=== PATIENT | female | born 1955 | race Caucasian/White ===

== ENCOUNTER 2019-11-28 05:37 | Day surgery (SDC) | payer BC ==
[2019-11-20 12:35] LABS: BASOPHILS # (AUTO) 0.1 X10'3 (0-0.2); BASOPHILS % (AUTO) 0.7 % (0-1); EOSINOPHILS # (AUTO) 0.2 X10'3 (0-0.9); EOSINOPHILS % (AUTO) 1.5 % (0-6); LYMPHOCYTES # (AUTO) 3.4 X10'3 (1.1-4.8); LYMPHOCYTES % (AUTO) 33.3 % (21-51); MEAN CORPUSCULAR HEMOGLOBIN 27.4 PG (27.0-31.0); MEAN CORPUSCULAR HGB CONC 32.7 g/dL (33.0-36.5); MEAN CORPUSCULAR VOLUME 83.7 FL (78-98); MEAN PLATELET VOLUME 8.1 FL (7.4-10.4); MONOCYTES # (AUTO) 1.1 X10'3 (0-0.9); MONOCYTES % (AUTO) 10.4 % (2-12); NEUTROPHILS # (AUTO) 5.6 X10'3 (1.8-7.7); NEUTROPHILS % (AUTO) 54.1 % (42-75); PRE OP HEMATOCRIT 43.7 % (35.0-45.0); PRE OP HEMOGLOBIN 14.3 g/dL (12.0-16.0); PRE OP PLATELET COUNT 348 X10'3 (140-440); RED BLOOD COUNT 5.22 X10'6 (4.20-5.60)
[2019-11-20 12:55] LABS: ALBUMIN 4.5 G/DL (3.4-5.0); ALBUMIN/GLOBULIN RATIO 1.3 (1.1-1.5); ALKALINE PHOSPHATASE 48 IU/L (46-116); BLOOD UREA NITROGEN 31 MG/DL (7-18); CALCIUM 9.8 MG/DL (8.5-10.1); CHLORIDE 104 MMOL/L (99-107); CREATININE 0.86 MG/DL (0.40-0.90); HEMOGLOBIN A1C 6.4 % (4.5-6.2); PRE OP ALT 31 U/L (30-65); PRE OP ANION GAP 6 (8-16); PRE OP AST 24 U/L (10-37); PRE OP BILIRUB, TOTAL 0.3 MG/DL (0.0-1.0); PRE OP GLUCOSE 82 MG/DL (70-104); PRE OP SODIUM 142 MMOL/L (135-145); TOTAL CARBON DIOXIDE 31.8 MMOL/L (24-32); TOTAL PROTEIN 7.9 G/DL (6.4-8.2); eGFR 67 ML/MIN
[2019-11-20 13:06] LABS: PRE OP POTASSIUM 2.9 MMOL/L (3.4-5.1)
[2019-11-28] VITALS (7 sets, daily range): BP systolic 94–118; BP diastolic 61–78
[~2019-11-28] VITALS: Ht 157.5 cm; Wt 72.8 kg
[~2019-11-28 05:37] MED LIST: CELE-28 PO; DAPA10TA PO; FENO145T38 PO; GABA300C PO; INSU100V11 SQ; INSU100V12 SQ; LIFI1DRO EACHEYE; LOSA1TAB39 PO; METF-438 PO; MORPHINE ER PO; SEMA7TAB PO; cefazolin/dext.iso 2gm/50ml 50 ML IV ONE; famotidine 20mg tablet PO ONE; ringers solution, lacted 1,000 ML IV SCH
[2019-11-28] MEDS ORDERED: LIDOcaine 1% (10mg/ml) 2ml vial ONE (05:56)
[2019-11-28 06:30] LABS: ISTAT ANION GAP -9 (8-12); ISTAT BUN 52 mg/dL (6-19); ISTAT CL 107 mmol/L (99-107); ISTAT CREATININE 0.7 mg/dL (0.6-1.1); ISTAT GLUCOSE 59 mg/dL (70-104); ISTAT HGB 13.3 g/dl (12.0-16.0); ISTAT Hct 39 %PCV (35-48); ISTAT IONIZED CALCIUM 0.72 mmol/L (1.03-1.32); ISTAT K > 8.5 mmol/L (3.5-5.1); ISTAT NA 127 mmol/L (135-145); ISTAT TOTAL CO2 29 mmol/L (24-32); ISTAT eGFR 85 ML/MIN; POC BUN/CREATININE RATIO 74.3 (6.6-38.0)
[2019-11-28 06:46] LABS: ISTAT CREATININE 0.9 mg/dL (0.6-1.1); ISTAT HGB 12.6 g/dl (12.0-16.0); ISTAT IONIZED CALCIUM 1.31 mmol/L (1.03-1.32); ISTAT K 3.1 mmol/L (3.5-5.1)
[2019-11-28] MEDS ORDERED: BUPIVAcaine/PF 2.5 mg/ml (0.25%) 30ml vial ONE (06:46)
[2019-11-28] MEDS ORDERED: LIDOcaine 0.5% (5mg/ml) 50ml vial ONE (07:45)
[2019-11-28] MEDS ORDERED: ringers solution, lacted 1,000 ML IV SCH (08:07)
[2019-11-28] MEDS ORDERED: ondansetron/PF 4mg/2ml inj IV PRN (08:10)
[2019-11-28] MEDS ORDERED: morphine 2 MG/ML inj. syringe IV PRN (08:10)
[2019-11-28] MEDS ORDERED: meperidine/PF 25mg/ml syringe IV PRN ×3 (08:10)
[2019-11-28] MEDS ORDERED: morphine 4 MG/ML inj SYRINge IV PRN (08:10)
[2019-11-28] MEDS ORDERED: proCHLORperazine 10 MG/2 ml inj IV PRN (08:10)
[2019-11-28] MEDS ORDERED: midazolam 2 mg/2 ml injection ONE (08:11)
[2019-11-28] MEDS ORDERED: fentaNYL/PF 50MCG/1 ML 2ML syringe ONE (08:11)
--- NOTE | 2019-11-28 08:34 | NUR ---
Received from OR via [facility] , accompanied by Anesthesiologist GRETA and report given by Anesthesiolgist. PATIENT WITH SPLINT AND BIAS TO RIGHT WRIST DRESSING THAT IS CDI. VSS. DENIES PAIN. PATIENT WITH 20G PIV IN LEFT UE RUNNING LR AT 100. DENIES PAIN. Addendum: 11/28/19 at 0850 by Kvng Reina RN, RN Amended: Links added.
--- NOTE | 2019-11-28 08:38 | NUR ---
Received from OR via [facility] , accompanied by Anesthesiologist GRETA and report given by Anesthesiolgist. PATIENT WITH DRESSING TO RIGHT UE THAT IS CDI. MOVES PINKY FINGER AND DENIES PAIN. 20G PIV IN LEFT UE RUNNING LR AT 100. Addendum: 11/28/19 at 0845 by Kvng Reina RN, RN Amended: Links added.
--- NOTE | 2019-11-28 08:55 | NUR ---
67 BLOOD GLUCOSE. WAS IN 50'S PRE OP. JUICE GIVEN PER MD HERNANDES REQUEST. Addendum: 11/28/19 at 0856 by Kvng Reina RN, RN Amended: Links added.
--- NOTE | 2019-11-28 09:14 | NUR ---
PATIENT AND FAMILY AND THEY HAVE VERBALIZED UNDERSTANDING, OPPORTUNITY TO ASK QUESTIONS GIVEN AND PATIENT COMFORTABLE WITH DC. IV TAKEN OUT WITHOUT COMPLICATION. PATIENT HAS MET ALL DC CRITERIA FOR DC HOME. I HAVE REVIEWED D/C INSTRUCTIONS WITH OUT VIA WHEELCHAIR WHERE PATIENT WAS TAKEN HOME WITH ALL BELONGINGS. FAMILY GAVE PATIENT TRANSPORT HOME. WRIST DRESSING IS CDI. SPOUSE DROVE PATIENT HOME. VSS. DENIES NEED FOR FURTHER MEDICATIONS. NO S/S OF HYPOGLYCEMIA. STATES HER LOW OCCURS IN THE LOW 50'S BG. Addendum: 11/28/19 at 0928 by Kvng Reina RN, RN Amended: Links added.
== END 2019-11-28 09:14 | disposition home or self-care (01) ==
LOC: PAS 05:37
PROVIDERS: ATTEND Orthopaedic Surgery Hand Surgery
DX: G56.01 Carpal tunnel syndrome, right upper limb (principal); M67.441 Ganglion, right hand; I10 Essential (primary) hypertension; E11.9 Type 2 diabetes mellitus without complications; M54.30 Sciatica, unspecified side; M17.11 Unilateral primary osteoarthritis, right knee; M47.9 Spondylosis, unspecified; G43.909 Migraine, unspecified, not intractable, without status migrainosus; E78.00 Pure hypercholesterolemia, unspecified; Z88.8 Allergy status to other drugs, medicaments and biological substances; Z88.1 Allergy status to other antibiotic agents; Z85.828 Personal history of other malignant neoplasm of skin; Z98.890 Other specified postprocedural states; Z79.899 Other long term (current) drug therapy; Z90.710 Acquired absence of both cervix and uterus; Z20.828 Contact with and (suspected) exposure to other viral communicable diseases; Z82.49 Family history of ischemic heart disease and other diseases of the circulatory system; Z80.42 Family history of malignant neoplasm of prostate
CPT/HCPCS: 26160; 29848; 36415; 80047; 80053; 82948; 83036; 85025; 87635; 93005; J2001; J2250; J3010; J3490; A4215; A7000; J7120

== ENCOUNTER 2019-12-26 05:49 | Day surgery (SDC) | payer BC ==
[~2019-12-26] VITALS: Ht 157.5 cm; Wt 72.6 kg
[~2019-12-26 05:49] MED LIST changes: -cefazolin/dext.iso 2gm/50ml 50 ML IV ONE; +famotidine 10mg tablet PO ONE; -famotidine 20mg tablet PO ONE
[2019-12-26 06:00] VITALS: BP 127/87
[2019-12-26] MEDS ORDERED: losartan 50mg tablet PO ONE (06:00)
[2019-12-26] MEDS ORDERED: ceFAZolin 2gm in dextrose, iso 50 ML IV ONE (06:00)
[2019-12-26] MEDS ORDERED: BUPIVAcaine/PF 2.5mg/ml (0.25%) 10ml vial ONE (06:39)
[2019-12-26 07:00] LABS: BASOPHILS # (AUTO) 0.1 X10'3 (0-0.2); EOSINOPHILS # (AUTO) 0.2 X10'3 (0-0.9); EOSINOPHILS % (AUTO) 2.3 % (0-6); LYMPHOCYTES # (AUTO) 3.1 X10'3 (1.1-4.8); LYMPHOCYTES % (AUTO) 39.9 % (21-51); MEAN CORPUSCULAR HEMOGLOBIN 26.8 PG (27.0-31.0); MEAN CORPUSCULAR HGB CONC 32.5 g/dL (33.0-36.5); MEAN CORPUSCULAR VOLUME 82.5 FL (78-98); MEAN PLATELET VOLUME 8.6 FL (7.4-10.4); MONOCYTES # (AUTO) 0.8 X10'3 (0-0.9); MONOCYTES % (AUTO) 10.2 % (2-12); NEUTROPHILS # (AUTO) 3.7 X10'3 (1.8-7.7); NEUTROPHILS % (AUTO) 46.6 % (42-75); PRE OP HEMATOCRIT 42.3 % (35.0-45.0); PRE OP HEMOGLOBIN 13.7 g/dL (12.0-16.0); PRE OP PLATELET COUNT 287 X10'3 (140-440); RED BLOOD COUNT 5.12 X10'6 (4.20-5.60); RED CELL DISTRIBUTION WIDTH 14.2 % (11.5-14.5)
[2019-12-26 07:11] LABS: ALBUMIN 4.4 G/DL (3.4-5.0); ALBUMIN/GLOBULIN RATIO 1.3 (1.1-1.5); ALKALINE PHOSPHATASE 52 IU/L (46-116); BLOOD UREA NITROGEN 28 MG/DL (7-18); BUN/CREATININE RATIO 35.4 (6.6-38.0); CALCIUM 10.6 MG/DL (8.5-10.1); CHLORIDE 109 MMOL/L (99-107); CREATININE 0.79 MG/DL (0.40-0.90); PRE OP ALT 38 U/L (30-65); PRE OP ANION GAP 6 (8-16); PRE OP AST 27 U/L (10-37); PRE OP BILIRUB, TOTAL 0.3 MG/DL (0.0-1.0); PRE OP GLUCOSE 80 MG/DL (70-104); PRE OP POTASSIUM 3.7 MMOL/L (3.4-5.1); PRE OP SODIUM 145 MMOL/L (135-145); TOTAL CARBON DIOXIDE 30.3 MMOL/L (24-32); TOTAL PROTEIN 7.8 G/DL (6.4-8.2); eGFR 74 ML/MIN
[2019-12-26] MEDS ORDERED: fentaNYL/PF 50MCG/1 ML 2ML syringe ONE (07:18)
[2019-12-26] MEDS ORDERED: MIDAZolam 5mg/5ml vial ONE (07:19)
[2019-12-26] MEDS ORDERED: morphine 2 MG/ML inj. syringe IV PRN (07:25)
[2019-12-26] MEDS ORDERED: ringers solution, lacted 1,000 ML IV SCH (07:25)
[2019-12-26] MEDS ORDERED: morphine 4 MG/ML inj SYRINge IV PRN (07:25)
[2019-12-26] MEDS ORDERED: meperidine/PF 25mg/ml syringe IV PRN ×3 (07:25)
[2019-12-26] MEDS ORDERED: proCHLORperazine 10 MG/2 ml inj IV PRN (07:25)
[2019-12-26] MEDS ORDERED: ondansetron/PF 4mg/2ml inj IV PRN (07:25)
[2019-12-26] MEDS ORDERED: LIDOcaine 1% 30ml preserv. free vial ONE (07:33)
[2019-12-26] MEDS ORDERED: 0.9 % SODIUM CHLORIDE 10 ML VIAL ONE (07:39)
[2019-12-26] MEDS ORDERED: ketorolac trometh. 30mg/ml inj. ONE (07:39)
[2019-12-26 08:20] VITALS: BP 132/83
--- NOTE | 2019-12-26 08:20 | NUR ---
Received from OR via BED, accompanied by Anesthesiologist DR ABARCA and report given by Anesthesiolgist. PATIENT A&OX4, DENIES PAIN, V/S WNL, NEUROVASCULAR CHECKS INTACT, 20G PIV RUE, SCD ON, DRESSING TO LEFT WRIST CDI ELEVATED WITH ICEBAG APPLIED.
[2019-12-26 08:30] VITALS: BP 122/75
[2019-12-26 08:40] VITALS: BP 128/77
[2019-12-26 08:50] VITALS: BP 124/74
--- NOTE | 2019-12-26 08:50 | NUR ---
PATIENT A&OX4, DENIES PAIN, V/S WNL, NEUROVASCULAR CHECKS INTACT, 20G PIV RUE D/C, SCD OFF, DRESSING TO LEFT WRIST CDI ELEVATED WITH ICEBAG APPLIED. I HAVE REVIEWED D/C INSTRUCTIONS WITH PATIENT AND FAMILY AND THEY HAVE VERBALIZED UNDERSTANDING. PATIENT D/C HOME WITH ALL BELONGINGS AND FAMILY GAVE TRANSPORT HOME.
== END 2019-12-26 08:50 | disposition home or self-care (01) ==
LOC: PAS 05:49
PROVIDERS: ATTEND Orthopaedic Surgery Hand Surgery
DX: G56.02 Carpal tunnel syndrome, left upper limb (principal); M17.11 Unilateral primary osteoarthritis, right knee; G89.29 Other chronic pain; E11.9 Type 2 diabetes mellitus without complications; I10 Essential (primary) hypertension; E78.00 Pure hypercholesterolemia, unspecified; G43.909 Migraine, unspecified, not intractable, without status migrainosus; M54.30 Sciatica, unspecified side; Z87.442 Personal history of urinary calculi; Z98.890 Other specified postprocedural states; Z79.899 Other long term (current) drug therapy; Z79.4 Long term (current) use of insulin; Z88.1 Allergy status to other antibiotic agents; Z88.8 Allergy status to other drugs, medicaments and biological substances; Z90.710 Acquired absence of both cervix and uterus; Z82.49 Family history of ischemic heart disease and other diseases of the circulatory system; Z80.42 Family history of malignant neoplasm of prostate
CPT/HCPCS: 29848; 36415; 80053; 82948; 85025; J1885; J2001; J2250; J3010; J3490; A4215; A7000; J7120

== ENCOUNTER 2024-06-03 21:18 | Emergency (ER) | payer OTHER, MEDICARE, BC ==
[~2024-06-03] VITALS: Ht 157.5 cm; Wt 84.1 kg
[~2024-06-03 21:18] MED LIST changes: -CELE-28 PO; +CELE-389 PO; -SEMA7TAB PO; +SEMA7TAB2 PO; -famotidine 10mg tablet PO ONE; -ringers solution, lacted 1,000 ML IV SCH
[2024-06-03] MEDS ORDERED: ketorolac trometh 15mg/ml vial 15 MG/ML ML IM ONE (21:35)
[2024-06-03] MEDS: ketorolac trometh 30MG/ML vial 30 MG/ML VIAL IM ONE (21:40)
[2024-06-03 21:55] VITALS: BP 170/99; PULSE 80; RESP 18; TEMP 98.6; O2SAT 99
== END 2024-06-03 21:56 | disposition home or self-care (01) ==
LOC: ER 21:19
DX: M54.50 Low back pain, unspecified (principal); G89.29 Other chronic pain; I10 Essential (primary) hypertension; Z88.0 Allergy status to penicillin; Z88.1 Allergy status to other antibiotic agents; Z88.5 Allergy status to narcotic agent; Z88.6 Allergy status to analgesic agent; Z88.8 Allergy status to other drugs, medicaments and biological substances; V43.62XA Car passenger injured in collision with other type car in traffic accident, initial encounter; Y93.89 Activity, other specified; Y92.89 Other specified places as the place of occurrence of the external cause; Y99.8 Other external cause status
CPT/HCPCS: 96372; 99283; J1885